=== PATIENT | female | born 1970 | race Caucasian/White ===

== ENCOUNTER 2024-08-22 07:15 | Day surgery (SDC) | payer BC ==
[2024-08-17 11:26] VITALS: BMI 35.5
[2024-08-22] MEDS ORDERED: BUPIVACAINE HCL/PF 0.25% (2.5MG/ML) 10 ML VIAL ONE (09:30)
[2024-08-22] MEDS ORDERED: PROPOFOL 20 ML ONE (09:42)
[2024-08-22] MEDS ORDERED: DEXAMETHASONE SOD PHOSPHATE 4 MG/1 ML VIAL ONE (09:42)
[2024-08-22] MEDS ORDERED: MIDAZOLAM HCL 2 MG/2 ML SINGLE DOSE VIAL ONE (09:42)
[2024-08-22] MEDS ORDERED: LACTATED RINGERS SOLUTION 1,000 ML IV SCH (09:45)
[2024-08-22] MEDS ORDERED: FAMOTIDINE 20 MG/50 ML IVPB 20 MG/50 ML MG IVPB ONE (09:56)
[2024-08-22] MEDS: BUPIVACAINE HCL/PF 0.25% (2.5MG/ML) 10 ML VIAL IJ ONE (10:54)
[2024-08-22] MEDS ORDERED: FENTANYL CITRATE/PF 50 MCG/ML VIAL ONE ×3 (11:12→11:43)
[2024-08-22] MEDS ORDERED: ONDANSETRON 4 MG/2 ML VIAL ONE (11:12)
[2024-08-22] MEDS: ONDANSETRON 4 MG/2 ML VIAL IVPUSH PRN (11:15)
[2024-08-22 12:56] VITALS: RESP 18; TEMP 98
[2024-08-22 14:25] VITALS: BP 114/74; PULSE 67
== END 2024-08-22 13:50 | disposition home or self-care (01) ==
LOC: FASU 07:15 → EDBD 10:00 → FASU 13:50
PROVIDERS: ATTEND Orthopaedic Surgery Sports Medicine
PROC: 0SBC4ZZ Excision of Right Knee Joint, Percutaneous Endoscopic Approach (ICD-10-PCS; principal; 2024-08-22 10:38)
DX: S83.241A Other tear of medial meniscus, current injury, right knee, initial encounter (principal); M94.261 Chondromalacia, right knee; M65.861 Other synovitis and tenosynovitis, right lower leg; X58.XXXA Exposure to other specified factors, initial encounter; Y92.9 Unspecified place or not applicable; Y93.9 Activity, unspecified
CPT/HCPCS: 94760